=== PATIENT | female | born 1990 | race African-American/Black ===

== ENCOUNTER 2019-02-18 12:37 | Emergency (ER) | payer SELFPAY ==
[~2019-02-18] VITALS: Ht 162.6 cm; Wt 72.6 kg
[2019-02-18 13:00] VITALS: BP 122/89
--- NOTE | 2019-02-18 13:00 | NUR ---
ED Nurse Note: pt walked in to ED due to lower abdominal pain since yesterday. pt also c/o heavy vaginal bleeding. per pt, needs to change overnight pad every 2 hrs. AAO x4. respirations even and non-labored noted. skin warm to touch. no open wound noted. will wait for the further order.
[2019-02-18] MEDS ORDERED: Morphine Sulfate 4mg/ml Inj (IV USE ONLY) IVP ONE (13:15)
[2019-02-18] MEDS ORDERED: Isovue-300 100ml vial INJ PRN (13:15)
--- NOTE | 2019-02-18 13:20 | NUR ---
ED Nurse Note: pt refused c x-ray. PA notified.
[2019-02-18 14:01] LABS: BASOPHILS % (AUTO) 1.2 % (0.0-2.0); EOSINOPHILS % (AUTO) 2.6 % (0.0-3.0); HEMATOCRIT 39.5 % (37.0-47.0); HEMOGLOBIN 12.9 G/DL (12.0-16.0); LYMPHOCYTES % (AUTO) 49.1 % (20.0-45.0); MEAN CORPUSCULAR VOLUME 89 FL (80-99); MONOCYTES % (AUTO) 8.2 % (1.0-10.0); NEUTROPHILS % (AUTO) 38.8 % (45.0-75.0); PLATELET COUNT 173 K/UL (150-450); RED BLOOD COUNT 4.45 M/UL (4.20-5.40); WHITE BLOOD COUNT 4.4 K/UL (4.8-10.8)
--- NOTE | 2019-02-18 14:02 | NUR ---
ED Nurse Note: pt went down for US.
[2019-02-18 14:10] LABS: ANION GAP 5 mmol/L (5-15); BLOOD UREA NITROGEN 11 mg/dL (7-18); CALCIUM 9.1 MG/DL (8.5-10.1); CARBON DIOXIDE 29 MMOL/L (21-32); CHLORIDE 107 MMOL/L (98-107); CREATININE 0.9 MG/DL (0.55-1.30); POTASSIUM 3.8 MMOL/L (3.5-5.1); SODIUM 141 MMOL/L (136-145)
[2019-02-18 14:15] LABS: ALANINE AMINOTRANSFERASE 20 U/L (12-78); ALBUMIN 3.7 G/DL (3.4-5.0); ALBUMIN/GLOBULIN RATIO 0.9 (1.0-2.7); ALKALINE PHOSPHATASE 81 U/L (46-116); ASPARTATE AMINO TRANSFERASE 14 U/L (15-37); BILIRUBIN,TOTAL 0.3 MG/DL (0.2-1.0)
[2019-02-18 14:42] LABS: APPEARANCE,URINE SLIGHTLY CLOUDY; BILIRUBIN, URINE NEGATIVE (NEGATIVE); COLOR,URINE PALE YELLOW; GLUCOSE, URINE (UA) NEGATIVE (NEGATIVE); KETONES,URINE NEGATIVE (NEGATIVE); LEUKOCYTE ESTERASE ,URINE 2+ (NEGATIVE); NITRITE,URINE NEGATIVE (NEGATIVE); PH,URINE 7 (4.5-8.0); PROTEIN,URINE 1+ (NEGATIVE); UROBILINOGEN,URINE NORMAL MG/DL (0.0-1.0)
[2019-02-18 14:43] LABS: INR 0.9 (0.9-1.1)
[2019-02-18] MEDS ORDERED: DiphenhydrAMINE 50mg/ml Inj ONE (15:04)
--- NOTE | 2019-02-18 15:05 | NUR ---
ED Nurse Note: pt has allergic reaction to contrast. pt c/o itchness right after radiology personnal injected contrast. unable to finish the test. PA notified.
--- NOTE | 2019-02-18 15:09 | NUR ---
Note nicholas in EDM - 02/18/19 at 1525 by ZENON ED Nurse Note: MIGUEL changed the order to 25mg of benadryl instaed of 50mg at the bed side. RN wasted 25mg of benadryl with LIBIA Cui.
--- NOTE | 2019-02-18 15:10 | NUR ---
ED Nurse Note: pt yelling, "my throat and body is itching." pt appears to be agitated. no hives noted. 100% in RA. able to speak full sentence without difficulty. will cont monitor.
--- NOTE | 2019-02-18 15:12 | Emergency Room Report ---
History of Present Illness General Chief Complaint: Vaginal Source: Patient Present Illness HPI 28-year-old female with history of partial hysterectomy that had been 6 months ago here complaining of 1 day of lower abdominal cramping feeling like her cervix is coming down, and vaginal spotting. Patient reports that she had endometriosis and had to go through emergency surgery due to right ovarian torsion she had her right ovary and most of her uterus removed she now has left ovary as well as a cervix. Patient reports that she recently moved to [place] 2 weeks ago from [place] and has been lifting a lot of heavy boxes. Denies syncope, lightheadedness, chest pain, shortness of breath, palpitation, nausea vomiting. Has not taken medication for his symptoms. Patient does not yet have established PERIPHERAL EDP EQUIPMENT OPERATOR in [place]. Denies dysuria urinary frequency. Allergies: Coded Allergies: AMOXICILLIN (Verified Allergy, Unknown, 02/18/19) IBUPROFEN (Verified Allergy, Unknown, 02/18/19) Uncoded Allergies: CONTRAST (Allergy, Unknown, 02/18/19) Patient History Past Medical History: see triage record Past Surgical History: unable to obtain Pertinent Family History: none Last Menstrual Period: hyst Now: No Immunizations: UTD Reviewed Nursing Documentation: PMH: Agreed; PSxH: Agreed Nursing Documentation-PMH Past Medical History: No History, Except For Review of Systems All Other Systems: negative except mentioned in HPI Physical Exam Vital Signs Date Time Temp Pulse Resp B/P (MAP) Pulse Ox O2 Delivery O2 Flow Rate FiO2 02/18/19 12:50 98.1 89 18 122/89 (100) 99 Room Air Sp02 EP Interpretation: reviewed, normal General Appearance: normal inspection, well appearing, no apparent distress, alert Head: normocephalic, atraumatic Eyes: bilateral eye normal inspection, bilateral eye PERRL ENT: normal ENT inspection, hearing grossly normal, normal pharynx Neck: normal inspection, full range of motion, supple Respiratory: normal inspection, chest non-tender, lungs clear, no respiratory distress, no wheezing Cardiovascular #1: normal inspection, no edema, no murmur Gastrointestinal: non tender, soft, no mass, no organomegaly, no peritonitis, non-distended, no guarding Rectal: deferred Genitourinary: no CVA tenderness Musculoskeletal: back normal Neurologic: normal inspection, alert, oriented x3 Psychiatric: normal inspection, judgement/insight normal Skin: no rash Lymphatic: normal inspection, no adenopathy, axilla node tender (R) Medical Decision Making PA Attestation All diagnoses and treatment plans were reviewed and discussed with my supervising physician Dr. Bueno Diagnostic Impression: Primary Impression: Abdominal pain Additional Impressions: Vaginal bleeding UTI (urinary tract infection) ER Course 28-year-old female with history of partial hysterectomy that had been 6 months ago here complaining of 1 day of lower abdominal cramping feeling like her cervix is coming down, and vaginal spotting. Patient reports that she had endometriosis and had to go through emergency surgery due to right ovarian torsion she had her right ovary and most of her uterus removed she now has left ovary as well as a cervix. Patient reports that she recently moved to [place] 2 weeks ago from [place] and has been lifting a lot of heavy boxes. Denies syncope, lightheadedness, chest pain, shortness of breath, palpitation, nausea vomiting. Has not taken medication for his symptoms. Patient does not yet have established PERIPHERAL EDP EQUIPMENT OPERATOR in [place]. Denies dysuria urinary frequency. Ddx considered but are not limited to: appendicitis, cholecystis, gastritis, gastroenteritis, UTI, pyelonephritis, SBO, diverticulitis, influenza with GI manifestation, MN, complication with , adhesions post op, Vital signs: are WNL, pt. is afebrile H&PE are most consistent with: UTI, vaginal bleeding, unspecified abdominal pain. ORDERS: abdominal CT, abdominal pain set, EKG, abdominal US, Tylenol, ED INTERVENTIONS: Morphine, Zofran, Tylenol, NS bolus DISCHARGE: At this time pt. is stable for d/c to home. Will provide printed patient care instructions, and any necessary prescriptions. Care plan and follow up instructions have been discussed with the patient prior to discharge. Patient refused transvaginal ultrasound as she was in pain, patient also refused to do CT scan without contrast after she showed allergic reaction/ pruritus when she was given dye for abdominal CT with contrast. Patient then was given dexamethasone and Benadryl and felt better. No anaphylaxis was noted. Patient was speaking in full sentences. At first patient agreed to do CT scan without contrast however then decided to leave and follow-up with her primary care provider if needed. I discussed the ultrasound results being within normal limits with the patient. Patient to refrain from strenuous physical activity. Also follow-up with an PERIPHERAL EDP EQUIPMENT OPERATOR. Patient stable at time of discharge. EKG Diagnostic Results Rate: normal Rhythm: NSR ST Segments: no acute changes Chest X-Ray Diagnostic Results Chest X-Ray Diagnostic Results : Chest X-Ray Ordered: Yes # of Views/Limited/Complete: 1 View Indication: Other EP Interpretation: Yes PA Xray: Interpretation reviewed, by supervising MD, and agrees with findings. Interpretation: no consolidation, no effusion, no pneumothorax Impression: No acute disease Electronically Signed by: Estrella Lopez PA-C CT/MRI/US Diagnostic Results CT/MRI/US Diagnostic Results : Imaging Test Ordered: Pelvic ultrasound Impression Within normal limits Last Vital Signs Date Time Temp Pulse Resp B/P (MAP) Pulse Ox O2 Delivery O2 Flow Rate FiO2 02/18/19 13:00 98.1 89 18 122/89 99 Room Air Disposition: HOME, SELF-CARE Condition: Stable Scripts Acetaminophen* (ACETAMINOPHEN EXTRA STRENGTH*) 500 Mg Tablet 1000 MG ORAL Q6H, #30 TAB 0 Refills Prov: Estrella Scott 02/18/19 Nitrofurantoin Monohyd/M-Cryst* (MACROBID 100 MG*) 100 Mg Capsule 100 MG ORAL EVERY 12 HOURS for 7 Days, #14 CAP Prov: Estrella Scott 02/18/19 Patient Instructions: Abdominal Pain, Adult, [id number], Urinary Tract Infection, [id number] Additional Instructions: Follow-up with PERIPHERAL EDP EQUIPMENT OPERATOR regarding her symptoms at this time based on the abdominal ultrasound that was performed today at [facility] no abnormalities noted. At this time no further action is needed in the emergency room, avoid strenuous physical activity. Estrella Scott Feb 18, 2019 15:12
[2019-02-18] MEDS ORDERED: DiphenhydrAMINE 50mg/ml Inj IVP ONE (15:15)
[2019-02-18] MEDS ORDERED: Dexamethasone 20mg/5ml IVP ONE (15:15)
--- NOTE | 2019-02-18 15:17 | Diagnostic Imaging Report ---
Indication: Chest pain Comparison: None A single view chest radiograph was obtained. Findings: Cardiomediastinal appearance is within normal limits for age. The lungs are limited in evaluation as they are hypoinflated but grossly clear. Pulmonary vascularity is appropriate. The diaphragmatic contour is smooth and costophrenic angles are sharp. No pleural effusions are identified. The bones are unremarkable. Impression: No acute findings
--- NOTE | 2019-02-18 15:22 | Diagnostic Imaging Report ---
Indication: Pelvic pain. History of endometriosis. Status post partial hysterectomy and left oophorectomy Technique: Grayscale and duplex Doppler imaging of the pelvis performed utilizing a transabdominal scan. Patient refused endovaginal examination. Comparison: None Findings: Surgical absence of the uterus noted. Cervical stump noted. No adnexal or pelvic mass identified. The right ovary is normal in appearance but suboptimally evaluated with probable dopplerable blood flow within the right ovary. The right ovary measures 2.2 x 1.4 x 2.9 cm. No free fluid identified. Bladder is unremarkable. IMPRESSION: Limited evaluation. No acute findings identified. Status post supracervical hysterectomy and left oophorectomy. Grossly unremarkable appearance of the right ovary
--- NOTE | 2019-02-18 15:33 | NUR ---
ED Nurse Note: pt appears to be more calm now. per pt, " feels better." pt lying in bed without any complication. doing cellphone. will wait for the further order.
--- NOTE | 2019-02-18 15:40 | NUR ---
ED Nurse Note: pt refused CT without contrast. per pt " I want to leave." RN notified PA.
[2019-02-18] MEDS ORDERED: NITROFURANTOIN100 M2 ORAL (15:41)
[2019-02-18] MEDS ORDERED: ACETAMINOPHEN500 M3 ORAL (15:43)
[2019-02-18 15:49] VITALS: BP 131/90
--- NOTE | 2019-02-18 15:50 | NUR ---
ER DISCHARGE NOTE: Patient is cleared to be discharged per ERMD with friend, pt is aox4, on room air, with stable vital signs. pt was given dc and prescription instructions, pt was able to verbalize understanding, pt id band and iv site removed without complications. pt is able to ambulate with steady gait. pt took all belongings.
== END 2019-02-18 15:53 | disposition home or self-care (01) ==
LOC: EMR 15:37
DX: R10.30 Lower abdominal pain, unspecified (principal); N93.9 Abnormal uterine and vaginal bleeding, unspecified; N39.0 Urinary tract infection, site not specified; Z90.710 Acquired absence of both cervix and uterus; Z90.721 Acquired absence of ovaries, unilateral
CPT/HCPCS: 36415; 71045; 76856; 80053; 80307; 81003; 81025; 83690; 85025; 85610; 85730; 86850; 86900; 86901; 87086; 93005; 96361; 96374; 96375; 99284; G0480; J1100; J1200; J2270; J2405; 80329